=== PATIENT | male | born 1940 | race Caucasian/White ===

== ENCOUNTER → 2017-10-07 | Day surgery (SDC) | payer MEDICARE ==
[~2017-10-07] VITALS: Ht 180.3 cm; Wt 70.3 kg
[~2017-10-07] MED LIST: ACETAMINOPHEN 1000 MG/100 ML 100 ML IV ONE; ACETAMINOPHEN/HYDROcodone 325 MG/7.5 MG TAB PO PRN; ASPI81TA23 PO; BETAMETHASONE SOD PHOS/ACETATE SUSP 30 MG/5 ML VIAL ONE; BUPIVACAINE/EPINEPHRINE 0.25% 50 ML VIAL ONE; CHLORHEXIDINE GLUCONATE 2 % 1 PACK (2 CLOTHS) TOPICAL PRN; CHLORHEXIDINE GLUCONATE 4% SOLN 120 ML BTL TOPICAL SCH; CIAL5TAB PO; CITA20TA4 PO; DEXAMETHASONE SOD PHOS 4 MG/ML VIAL IV ONE; DO NOT ADM ANY ANTICOAGULANT DRUGS PRN; ESMOLOL HCL 100 MG/10 ML VIAL IV ONE; GELFOAM SIZE 100 ONE; GENTAMICIN SULFATE 80 MG/2 ML VIAL ONE; GLYCOPYRROLATE 1 MG/5 ML SYRINGE IV PUSH ONE; HYDR-3288 PO; KETOROLAC TROMETHAMINE 30 MG/ML (IVP) VIAL IV PUSH ONE; LACTATED RINGER'S 1000 ML INJ 1,000 ML IV ONE; LACTATED RINGER'S 1000 ML INJ 1,000 ML IV SCH; LACTATED RINGER'S 1000 ML IV PRN; LIDOCAINE HCL 1% PF 5 ML SYRINGE OTHER ONE; LORA2TAB7 PO; METOPROLOL TARTRATE 25 MG TAB PO PRN; MORPHINE SULFATE 2 MG/ML INJ IV PRN; NEOSTIGMINE 5 MG/5 ML SYRINGE IV PUSH ONE; ONDANSETRON HCL 4 MG/2 ML VIAL IV ONE; POVIDONE IODINE 5% (ANTISEPSIS KIT) 4 APPLICATIONS EACH NARE PRN; PROPOFOL 200 MG/20 ML AMP IV ONE; ROCURONIUM INJ 50 MG/5 ML SYRINGE IV PUSH ONE; SODIUM CHLORID 0.9% 500 ML IV PRN; SUCCINYLCHOLINE CHLORIDE 100 MG/5 ML SYRINGE IV PUSH ONE; ceFAZolin 2 GM PREMIX 50 ML IV SCH; ePHEDrine/NS 25 MG/5 ML SYRINGE IV ONE
--- NOTE | 2017-10-07 13:53 | PD.OP ---
cc: Raheem Bergman. Operative Report Date of Surgery: Oct 07, 2017 Preoperative Diagnosis: Lumbar spinal stenosis, L2-3 and L3 4. Bilateral lumbosacral radiculopathy, left greater than right Postoperative Diagnosis: Same Procedure: Bilateral lumbar laminectomy from the left L2-3 and L3 4. Bilateral lateral recess decompression. Use of dilation port and microscope Anesthesia: Gen. Surgeon: Raheem Bergman Rail Specialist(s): CORBIN Dsouza Operation and Findings: EBL: 50 cc INDICATION: Patient is a 76-year-old male with significant back hip and leg pain. Investigative studies shows evidence of a moderate to high-grade stenosis L2-3 and L3 4. Despite conservative care, he is painful and symptomatically. He presents for surgical treatment. NOTE: Jennifer Dsouza PA-C was present for the entire surgical procedure as my first aid director. In my medical opinion her skill and care was necessary for the proper management of this patient. PROCEDURE: The patient was brought to the operating room and anesthetized in the supine position. The patient was rolled to a prone position on a Rock frame on a Alexandru table. All pressure points were protected in the back was scrubbed with alcohol followed by Hibiclens followed by ChloraPrep and draped sterilely. A timeout was done and antibiotics were given. AP and lateral radiographic images were used to identify the proper levels and perform skin markings. We started from the left side at the L2-3 level. A paramedian incision was made and an off-midline fascial incision was made. A dilating system was placed down to the interlaminar space and held provisionally to the side of the table. The microscope was brought into the field. A high-speed bur under the microscope was used to perform a lateral laminectomy from that side. A lateral recess decompression laterally was accomplished using straight and angled Kerrison punches. A partial medial facetectomy was accomplished. The crossing and exiting nerve roots were completely decompressed. We moved to the L3 4 level. A separate fascial incision was made. A dilating system was placed down to the interlaminar space and held provisionally to the side of the table. The microscope was brought back into the field. A high- speed bur under the microscope was used to perform a bilateral laminectomy from that side. A lateral recess decompression bilaterally was accomplished using straight and angled Kerrison punches. A partial medial facetectomy was accomplished. The crossing and exiting nerve roots were completely decompressed. The wound was irrigated copiously. Hemostasis was controlled. The deep fascia was approximated with interrupted 0 Vicryl suture subcutaneous suture with 2-0 Vicryl suture and skin with running intradermal 3-0 Vicryl followed by Dermabond. A field block with local anesthesia was utilized. A sterile dressing was applied. The sponge count and needle counts and instrument counts were all correct. The patient tolerated the procedure well as taken to the recovery room in satisfactory condition. FINDINGS: There was evidence of a high-grade lateral recess stenosis at both levels. The decompression was felt to be very satisfactory. No complication was appreciated. The wound was dry at the end of the procedure. Raheem Bergman MD Oct 07, 2017 13:53
--- NOTE | 2017-10-07 15:40 | RADRPT ---
EXAM DATE/TIME: 10/07/2017 12:39 [facility] COMPARISON: No previous studies available for comparison. INDICATIONS : Level Localization L2,L3 and L3,L4. MEDICAL HISTORY : None. SURGICAL HISTORY : Fusion, lumbar. ENCOUNTER: Initial ACUITY: 1 day PAIN SCORE: Non-responsive. LOCATION: Lumbar spine. FINDINGS: Single lateral view of the lumbar spine recorded digital in the operating room with surgical retracto r in place. CONCLUSION: Intraoperative image. Julio Guajardo MD on October 07, 2017 at 15:38 Board Certified Radiologist. This report was verified electronically.
[2017-10-07 16:40] VITALS: BP 120/75; PULSE 75; RESP 20; TEMP 97.4; O2SAT 94
== END | disposition home or self-care (01) ==
LOC: HSDC 07:21
PROVIDERS: ATTEND Orthopaedic Surgery Orthopaedic Surgery of the Spine
DX: M48.061 Spinal stenosis, lumbar region without neurogenic claudication (principal); J44.9 Chronic obstructive pulmonary disease, unspecified
CPT/HCPCS: 00630; 63047; 63048; 72020; 76000; J0131; J0330; J0690; J0702; J1100; J1580; J1885; J2405; J2710; J3010; J7120